=== PATIENT | male | born 1980 | race Caucasian/White ===

== ENCOUNTER → 2021-07-12 | Outpatient (CLI) | payer BC ==
--- NOTE | 2021-07-12 19:18 | CONS ---
CONSULTATION DATE OF SERVICE: 07/12/2021 40-year-old gentleman has [facility] evaluated [facility] for possible obstructive sleep apnea-hypopnea syndrome. HISTORY OF PRESENT ILLNESS SLEEP-WAKE EVALUATION: SLEEP SCHEDULE: Patient's usual sleep schedule on weekdays from 9:30/10:30 p.m. until 4 or 5:30 a.m., on weekends from 11 p.m. to 5:30 a.m. FALLING ASLEEP: No problems with falling asleep. No TV in bedroom. He usually sleeps on the stomach position. According to his , he has very loud snoring and witnessed episodes of stopped breathing during sleep. The patient wakes up from sleep once with nocturia, dry mouth, heartburn, positive history of sleep talking. In the morning, the patient wakes up tired, falling asleep during the day, worries about his sleep, has problems with memory, concentration, sexual dysfunction. Milburn Sleepiness Scale significantly increased to 15. PAST MEDICAL HISTORY: Positive for hypertension, shoulder problems, right knee problems. PAST SURGICAL HISTORY: None. MEDICATIONS: Medication for the blood pressure including hydrochlorothiazide. The patient does not remember the name of first medication. SOCIAL HISTORY: Negative for smoking, alcohol consumption rarely. FAMILY HISTORY: Positive for hypertension, heart problems, mental illness, arthritis, cancer. REVIEW OF SYSTEMS: Loud snoring, sleepiness during the day. PHYSICAL EXAMINATION: GENERAL: gentleman without distress. BP 121/81, RR 15, height 6 feet 2 inches, weight 384.4 pounds, body mass index 49.3, temperature 97.4, oxygen saturation at room air 96%. Oropharynx: Extremely low position of soft palate, Mallampati 4, extremely wide neck, 20.5 inches in circumference. NECK: Supple, no JVD. Thyroid is not palpable. LUNGS: Clear to percussion and to auscultation. Good air exchange. No wheezing or rhonchi. HEART: S1, S2 regular. No murmurs, gallops, or rubs. ABDOMEN: Obese. Soft and nontender. Bowel sounds are present. No organomegaly appreciated. EXTREMITIES: No clubbing or cyanosis. DRILLER'S ASSISTANT: Awake, alert, and oriented X3. Cranial nerves 2 to 7 intact. There is no fasciculation or atrophy. noted. No focal deficits observed. IMPRESSION: 1. Loud snoring, witnessed episodes of stopped breathing during sleep, extremely low position of soft palate, Mallampati 4, extremely wide neck, 20.5 inches in circumference, high level of sleepiness with Milburn Sleepiness Scale 15, obstructive sleep apnea-hypopnea syndrome. 2. Morbid obesity, BMI 49.3. 3. Hypertension. 4. Shoulder arthritis. 5. Right knee problems related to meniscus. PLAN: 1. Polysomnography for evaluation of patient's breathing during sleep. Polysomnography is necessary because of morbid obesity, obesity hyperventilation. 2. CPAP/BiPAP titration if sleep study confirms obstructive sleep apnea-hypopnea syndrome. 3. Preferable position during sleep on the side. 4. No driving if patient feels any sleepiness. 5. I will see patient for follow up visit to explain results of testing and following plan. Lukas Buenrostro MD, PhD, FAASM Diplomat of [place] [employer] Sleep Medicine [employer] [place] [employer] Supervisor of [facility] [place] MMODL / IJN: [id number] /
== END ==
LOC: SLEEP 13:59
PROVIDERS: ATTEND Internal Medicine
DX: G47.33 Obstructive sleep apnea (adult) (pediatric) (principal); E66.01 Morbid (severe) obesity due to excess calories; I10 Essential (primary) hypertension; M19.019 Primary osteoarthritis, unspecified shoulder; Z68.42 Body mass index [BMI] 45.0-49.9, adult
CPT/HCPCS: 99202

== ENCOUNTER → 2024-10-02 | Outpatient (CLI) | payer OTHER ==
[2024-10-02 16:31] LABS: HCT 43.7 % (39.6-50.0); HGB 15.5 g/dL (13.0-17.0); MCH 28.8 pg (27.0-32.0); MCHC 35.5 g/dL (32.0-37.0); MCV 81.1 FL (80.0-97.0); Mean Platelet Volume 10.3 FL (9.5-12.2); NRBC Per 100 WBC 0 X 10*3/uL (0.00-0.01); Platelet Count 226 X 10*3/uL (140-440); RBC 5.39 X 10*6/uL (4.40-5.60); WBC 7.17 X 10*3/uL (4.50-10.00)
[2024-10-02 16:49] LABS: ALT 43 U/L (10-49); AST 28 U/L (14-35); Albumin 4.3 g/dL (3.8-4.9); Albumin/Globulin Ratio 1.79 Ratio (1.60-3.17); Alkaline Phosphatase 77 U/L (41-126); Blood Urea Nitrogen 13.8 mg/dL (9.0-27.0); Calcium 9.3 mg/dL (8.7-10.3); Carbon Dioxide 26.5 mmol/L (21.6-31.8); Chloride 112 mmol/L (96-109); Chol/HDL Ratio 3.99 Ratio; Globulin 2.4 g/dL (1.6-3.3); Glucose 102 mg/dL (70-110); LDL Cholesterol,Calculated 124.2 mg/dL (0.0-131.0); Sodium 151 mmol/L (135-145); T4, Free (Free Thyroxine) 1.36 ng/dL (0.80-1.80); Total Bilirubin 0.5 mg/dL (0.3-1.2); Total Protein 6.7 g/dL (6.2-8.2)
== END | disposition home or self-care (01) ==
LOC: LABWHC1 09:53
PROVIDERS: ATTEND Family Medicine
DX: Z00.00 Encounter for general adult medical examination without abnormal findings (principal); R53.83 Other fatigue
CPT/HCPCS: 36415; 80053; 80061; 82306; 84439; 84443; 85027

== ENCOUNTER 2024-12-24 07:42 | Day surgery (SDC) | payer OTHER ==
[2024-12-22 16:17] VITALS: BMI 45.0
[~2024-12-24 07:42] MED LIST: LIDOCAINE 1% (10MG/ML) FOR IV START INTRADERMA PRN
--- NOTE | 2024-12-24 07:42 | P.GSHP ---
History of Present Illness H&P Date: 12/24/24 CHIEF COMPLAINT: GI bleed HISTORY OF PRESENT ILLNESS: The patient is a 44-year-old male who presents with GI bleed. Upper and lower endoscopy were offered for further evaluation and management. PAST MEDICAL HISTORY: Please see list. PAST SURGICAL HISTORY: Please see list. MEDICATIONS: Please see list. ALLERGIES: Please see list. SOCIAL HISTORY: No illicit drug use FAMILY HISTORY: No reports of Crohn disease or ulcerative colitis. REVIEW OF ORGAN SYSTEMS: CONSTITUTIONAL: No reports of fevers or chills. PHYSICAL EXAM: VITAL SIGNS: Stable GENERAL: Well-developed pleasant in no acute distress. HEENT: No scleral icterus. Extraocular movements grossly intact. Moist buccal mucosa. NECK: Supple without lymphadenopathy. CHEST: Unlabored respirations. Equal bilateral excursions. CARDIOVASCULAR: Regular rate and rhythm. Distal 2+ pulses. ABDOMEN: Soft, nondistended. MUSCULOSKELETAL: No clubbing, cyanosis, or edema. ASSESSMENT: 1. GI bleed PLAN: 1. Recommend proceeding with an upper and lower endoscopy Past Medical History Past Medical History: GERD/Reflux, Hypertension, Osteoarthritis (OA), Sleep Apnea/CPAP/BIPAP Additional Past Medical History / Comment(s): Hx migraines. BIPAP use. History of Any Multi-Drug Resistant Organisms: None Reported Past Surgical History: No Surgical Hx Reported Past Anesthesia/Blood Transfusion Reactions: No Reported Reaction Additional Past Anesthesia/Blood Transfusion Reaction / Comment(s): Has never had anesthesia. Smoking Status: Former smoker - Past Family History Mother Family Medical History: Cancer Father Family Medical History: Deep Vein Thrombosis (DVT) Medications and Allergies Home Medications Medication Instructions Recorded Confirmed Type Losartan [Cozaar] 12.5 mg PO QAM 12/22/24 12/22/24 History Allergies Allergy/AdvReac Type Severity Reaction Status Date / Time No Known Allergies Allergy Verified 12/22/24 16:03
[2024-12-24 08:14] VITALS: TEMP 97.7
[2024-12-24] MEDS: IV FLUID CONTINUATION 1,000 ML IV ONE (08:14)
[2024-12-24] MEDS: LACTATED RINGERS 1,000 ML IV SCH (08:16)
[2024-12-24] MEDS ORDERED: KETAMINE HCL IN 0.9 % NACL 50 MG/5 ML SYRINGE ONE (08:40)
[2024-12-24] MEDS ORDERED: LIDOCAINE 2% (PF) 20 MG/ML 5 ML VIAL ONE (08:40)
[2024-12-24] MEDS ORDERED: PROPOFOL 10 MG/ML 20 ML VIAL IV ONE (08:40)
[2024-12-24] MEDS ORDERED: fentaNYL (PF) 50 MCG/ML 2 ML AMP ONE (08:40)
--- NOTE | 2024-12-24 08:52 | P.PCN ---
Date of Procedure: 12/24/24 Description of Procedure: PREOPERATIVE DIAGNOSIS: Gastrointestinal bleeding Gastritis Morbid obesity. POSTOPERATIVE DIAGNOSIS: Gastroesophageal reflux disease. Gastritis. Duodenitis OPERATION: Esophagogastroduodenoscopy with cold forceps biopsies along esophagus, antrum and duodenum SURGEON: Janelle Andrews MD ANESTHESIA: MAC. INDICATIONS: The patient is a 44-year-old male who presents with dysphagia and reflux disease. Benefits and risks of the procedure were described. Informed consent was obtained. DESCRIPTION: The patient was brought into the endoscopy suite and laid in the left lateral decubitus position. An Olympus gastroscope was passed along the posterior oropharynx down to the distal esophagus where the squamocolumnar junction was encountered at 43 cm from the incisors. The stomach was entered and no bile reflux was found. Additional findings are listed below. Biopsies with cold forceps were obtained of the antrum. The first through third portion of the duodenum was examined. Retroflexion of the scope confirmed Hill grade 2 lower esophageal valve. The squamocolumnar junction demonstrated LA grade B erosive esophagitis. The stomach was desufflated. The patient tolerated the procedure well. FINDINGS: Squamocolumnar junction 43 cm from the incisors. Diaphragmatic hiatus at 43 cm. Hill grade 2 lower esophageal valve. LA grade B erosive esophagitis. Biopsies obtained Biopsies obtained of the duodenum. Chronic gastritis with biopsies obtained. RECOMMENDATIONS: Upper endoscopy as needed.
--- NOTE | 2024-12-24 09:02 | P.PCN ---
Date of Procedure: 12/24/24 Description of Procedure: PREOPERATIVE DIAGNOSIS: Gastrointestinal Abnormal stool function Change in bowel habits POSTOPERATIVE DIAGNOSIS: Sigmoid diverticulosis Microscopic colitis OPERATION: Colonoscopy to the cecum, ileocecal valve and appendiceal orifice. Colonoscopy with random cold forceps biopsies for microscopic colitis SURGEON: Janelle Andrews MD. ANESTHESIA: MAC. INDICATIONS: The patient is a 44-year-old male who presents with gastrointestinal bleeding, altered stools including change in bowel habits. Benefits and risks were described and informed consent was obtained. DESCRIPTION OF PROCEDURE: The patient had undergone Suprep. The patient had been brought into the operating room and laid in the left lateral decubitus position. After adequate intravenous sedation, the rectum was examined with 2% lidocaine jelly. No external hemorrhoids were encountered. The rectal tone was within normal limits. No lesions were palpated in the rectal vault. An Olympus colonoscope was advanced until the cecum, ileocecal valve and appendiceal orifice were clearly viewed. The prep was fair to good. Scattered diverticulosis was encountered. No colonic polyps were found. Cold forceps biopsies randomly were obtained for microscopic colitis. Retroflexion of the scope demonstrated grade 1 internal hemorrhoids without active bleeding or inflammation. The colon was desufflated. The patient had tolerated the procedure well. Withdrawal time was over 6 minutes. FINDINGS: Aronchick preparation quality scale 2+ (1-5) Internal hemorrhoids, grade 1 No external prolapsed hemorrhoids. No arteriovenous malformations. No adenomatous polyps. Cold forceps biopsies obtained for microscopic colitis RECOMMENDATIONS: Lower endoscopy 2025, and screening age [age] years old Plan - Discharge Summary Discharge Rx Participant: No New Discharge Prescriptions: Continue Losartan [Cozaar] 12.5 mg PO QAM Discharge Medication List Losartan [Cozaar] 12.5 mg PO QAM 12/22/24 [History] Follow up Appointment(s)/Referral(s): Janelle Andrews MD [STAFF PHYSICIAN] - 01/12/25 1:00 pm Patient Instructions/Handouts: Diverticulosis (DC), Gastritis (DC) Activity/Diet/Wound Care/Special Instructions: Repeat colonoscopy at screening age [age] years old, 2025 Discharge Disposition: HOME SELF-CARE
[2024-12-24 09:21] VITALS: BP 107/66; PULSE 66; RESP 16
== END 2024-12-24 09:44 | disposition home or self-care (01) ==
LOC: ORWHC2ENDO 07:42
PROVIDERS: ATTEND Surgery Plastic and Reconstructive Surgery
DX: K29.81 Duodenitis with bleeding (principal); K21.01 Gastro-esophageal reflux disease with esophagitis, with bleeding; K64.1 Second degree hemorrhoids; K31.9 Disease of stomach and duodenum, unspecified; K57.31 Diverticulosis of large intestine without perforation or abscess with bleeding; I10 Essential (primary) hypertension; E66.01 Morbid (severe) obesity due to excess calories; M19.90 Unspecified osteoarthritis, unspecified site; G47.33 Obstructive sleep apnea (adult) (pediatric); G43.909 Migraine, unspecified, not intractable, without status migrainosus; Z87.891 Personal history of nicotine dependence; Z79.899 Other long term (current) drug therapy
CPT/HCPCS: 88305; 45380; 43239; J3010; J2704; J2003; 45378